=== PATIENT | male | born 2000 | race African-American/Black ===

== ENCOUNTER 2021-06-28 06:34 | Day surgery (SDC) | payer OTHER ==
[~2021-06-28] VITALS: Ht 177.8 cm; Wt 119.5 kg
[~2021-06-28 06:34] MED LIST: ACETAMINOPHEN 500 MG TABLET PO PRN; CETI10TA74 PO; DIPH25CA58 PO; HYDROmorphone 2 MG/ML VIAL IVP PRN; MORPHINE SULFATE 2 MG/ML INJ. IVP PRN; PROCHLORPERAZINE 10 MG/2 ML VIAL. IVP PRN; fentaNYL PF VIAL 100 MCG/2 ML VIAL IVP PRN
[2021-06-28] MEDS ORDERED: BUPIVACAINE-EPI 0.25%-1:200000 MPF 30 ML VIAL. ONE (06:50)
[2021-06-28 07:00] VITALS: BP 170/77
[2021-06-28] MEDS: IV RINGERS,LACTATED 1000ML 1,000 ML IV SCH ×2 (07:07→09:27)
[2021-06-28] MEDS ORDERED: fentaNYL PF VIAL 100 MCG/2 ML VIAL ONE (07:24)
[2021-06-28] MEDS ORDERED: DEXAMETHASONE SOD PHOS 4 MG/ML VIAL ONE (07:24)
[2021-06-28] MEDS ORDERED: ONDANSETRON PF 4 MG/2 ML VIAL. ONE (07:24)
[2021-06-28] MEDS ORDERED: PROPOFOL 10 MG/ML (20ML) VIAL. IV ONE ×2 (07:24→08:13)
[2021-06-28] MEDS ORDERED: MIDAZOLAM HCL/PF 2 MG/2 ML VIAL. ONE (07:24)
[2021-06-28] MEDS ORDERED: LIDOCAINE 2% PF 5 ML VIAL. ONE (07:24)
[2021-06-28] MEDS ORDERED: FAMOTIDINE 20 MG/2 ML VIAL ONE (07:56)
[2021-06-28] MEDS ORDERED: KETOROLAC 30 MG/ML VIAL. ONE (07:59)
[2021-06-28] MEDS ORDERED: SEVOFLURANE 31 TO 60 MINUTES. IH ONE (08:09)
--- NOTE | 2021-06-28 08:11 | PDOC4 ---
Operative Note Operative Note Date: June 282020 at 810 Preoperative diagnosis: Umbilical hernia Postoperative diagnosis: Same Procedure: Umbilical hernia repair Surgeon: Rodney Specimen: Hernia contents Dictation: Patient is 20-year-old male with complaints of a painful bulge at his umbilicus. Procedure of umbilical hernia repair was explained to the patient detail risk benefits were also discussed including bleeding infection alternatives this procedure also discussed with the patient who seemed to understand and gave a verbal written consent to have procedure performed. Patient was taken to the operating room placed in the supine position general anesthesia was initiated once patient was sleeping intubated his abdomen was prepped and draped usual sterile fashion using ChloraPrep. Area around the umbilicus was injected with quarter percent Marcaine with epinephrine incision was made just above the umbilicus with 15 blade scalpel is carried down through the subcutaneous tissue using electrocautery right hemostasis to the hernia sac and contents were encountered they were excised sharply with electrocautery and sent for pathology the hernia defect was then closed with a [id number] 0 Vicryl suture. The incision was then closed with 4-0 subcuticular Monocryl Mastisol Steri-Strips and island dressings were applied. Patient was awakened and extubated in the operating room taken to recovery in stable condition all sponge instrument needle counts listed as correct estimated blood loss less than 5 cc DELFINO LAGUNA MD Jun 28, 2021 08:11
[2021-06-28] MEDS ORDERED: OXYC-325 PO (08:13)
--- NOTE | 2021-06-28 08:14 | DISCH ---
DISCHARGE INSTRUCTIONS Condition on Discharge Condition on Discharge: Stable Activity After Discharge Activity Instructions for Disc: Avoid exertion Other activity instructions: No lifting more than 20 pounds for 2 weeks Diet after Discharge Diet after Discharge: Regular Wound Incision Care Other wound/incision instructi: Svitlana shower in 24 hours Contacting the after DC Call your doctor for: If your condition worsens Follow-Up Follow up with: Dr. Laguna in 2 weeks DELFINO LAGUNA MD Jun 28, 2021 08:14
[2021-06-28] MEDS ORDERED: oxyCODONE/APAP 5/325 1 TAB TABLET PO ONE (09:15)
[2021-06-28 10:10] VITALS: BP 150/64
--- NOTE | 2021-07-01 14:07 | PATHOLOGY ---
[facility] Accession Number: [id number] . 01 Material submitted: . umbilicus - HERNIA CONTENTS . 01 Clinical history: . HERNIA UMBILICAL OPEN UMBILICAL HERNIA REPAIR . 02 Diagnosis: Umbilical hernia contents: - Segment of benign adipose and fibrous tissue. (JPM:kim; 07/01/2021) S 07/01/2021 1149 Local . 02 Electronically signed: . Hamlet Puri MD, Pathologist NPI- [id number] . 01 Gross description: . The specimen is received in formalin, labeled "Daysi, Sean, hernia contents". It consists of a marcano-yellow, irregular fatty soft tissue segment measuring 3.2 x 0.2 x 1.5 cm. Sectioning reveals marcano-yellow lobulated cut surfaces. Import Clerk sections are submitted in A1. (MRF; 06/28/2021) MFE/MFE 07/01/2021 1148 Local . 02 Pathologist provided ICD-10: K42.9 . 02 CPT . 740084 Specimen Comment: A courtesy copy of this report has been sent to [phone] Specimen Comment: Report sent to DR. HICKMAN Performed at: 01 [facility] [address], [place] [id number] MD Jose Antonio Jama MD Phone: [phone] Performed at: 02 [facility] [address] [place], [place] [id number] MD Hamlet Puri MD Phone: [phone]
--- NOTE | 2021-07-16 15:02 | PDOC1 ---
History and Physical Date of Admission Date of Admission DATE: 06/28/21 TIME: 08:00 Identification/Chief Complaint Chief Complaint Painful umbilicus Source Source: Patient History of Present Illness History of Present Illness 20-year-old male with a painful bulge at his umbilicus consistent with umbilical hernia Past Medical History Cardiovascular: No pertinent hx Pulmonary: No pertinent hx GI: No pertinent hx Heme/Onc: No pertinent hx Hepatobiliary: No pertinent hx Psych: No pertinent hx Rheumatologic: No pertinent hx Infectious disease: No pertinent hx ENT: No pertinent hx Renal/: No pertinent hx Endocrine: No pertinent hx Dermatology: No pertinent hx Past Surgical History Past Surgical History: No pertinent history Family History Family History: No Significant Social History Smoke: No ALCOHOL: none Drugs: None Current Medications Current Medications Current Medications Fentanyl Citrate (Fentanyl 2ml Vial) 25 mcg PRN Q5MIN PRN IVP MILD PAIN 1-3; Start 06/28/21 at 06:00; Stop 06/28/21 at 10:58; Status DC Fentanyl Citrate (Fentanyl 2ml Vial) 50 mcg PRN Q5MIN PRN IVP MODERATE PAIN 4- 6; Start 06/28/21 at 06:00; Stop 06/28/21 at 10:58; Status DC Morphine Sulfate (Morphine Sulfate) 1 mg PRN Q10MIN PRN IVP SEVERE PAIN 7-10; Start 06/28/21 at 06:00; Stop 06/28/21 at 10:58; Status DC Ringer's Solution 1,000 ml @ 30 mls/hr Q24H IV Last administered on 06/28/21at 09:27; Start 06/28/21 at 06:00; Stop 06/28/21 at 10:58; Status DC Hydromorphone HCl (Dilaudid) 0.5 mg PRN Q10MIN PRN IVP SEVERE PAIN 7-10, 2nd CHOICE; Start 06/28/21 at 06:00; Stop 06/28/21 at 10:58; Status DC Prochlorperazine Edisylate (Compazine) 5 mg PACU PRN PRN IVP NAUSEA, MRX1; Start 06/28/21 at 06:00; Stop 06/28/21 at 10:58; Status DC Acetaminophen (Tylenol) 1,000 mg 1X PREOP PRN PO PRIOR TO PROCEDURE Last administered on 06/28/21at 07:08; Start 06/28/21 at 06:00; Stop 06/28/21 at 10:58; Status DC Cefazolin Sodium/ Dextrose 50 ml @ 100 mls/hr 1X PREOP PRN IV PRIOR TO PROCEDURE Last administered on 06/28/21at 07:46; Start 06/28/21 at 06:00; Stop 06/28/21 at 10:58; Status DC Bupivacaine HCl/ Epinephrine Bitart (Sensorcaine-Epi 0.25%-1:685284 Mpf) 30 ml STK-MED ONCE .ROUTE Last administered on 06/28/21at 08:01; Start 06/28/21 at 06:50; Stop 06/28/21 at 06:51; Status DC Propofol (Diprivan) 200 mg STK-MED ONCE IV ; Start 06/28/21 at 07:24; Stop 06/28/21 at 07:24; Status DC Lidocaine HCl (Lidocaine Pf 2% Vial) 5 ml STK-MED ONCE .ROUTE ; Start 06/28/21 at 07:24; Stop 06/28/21 at 07:24; Status DC Ondansetron HCl (Zofran) 4 mg STK-MED ONCE .ROUTE ; Start 06/28/21 at 07:24; Stop 06/28/21 at 07:24; Status DC Dexamethasone Sodium Phosphate (Decadron) 4 mg STK-MED ONCE .ROUTE ; Start 06/28/21 at 07:24; Stop 06/28/21 at 07:24; Status DC Fentanyl Citrate (Fentanyl 2ml Vial) 100 mcg STK-MED ONCE .ROUTE ; Start 06/28/21 at 07:24; Stop 06/28/21 at 07:24; Status DC Midazolam HCl (Versed) 2 mg STK-MED ONCE .ROUTE ; Start 06/28/21 at 07:24; Stop 06/28/21 at 07:24; Status DC Famotidine (Pepcid Vial) 20 mg STK-MED ONCE .ROUTE ; Start 06/28/21 at 07:56; Stop 06/28/21 at 07:57; Status DC Ketorolac Tromethamine (Toradol 30mg Vial) 30 mg STK-MED ONCE .ROUTE ; Start 06/28/21 at 07:59; Stop 06/28/21 at 07:59; Status DC Sevoflurane (Ultane) 30 ml STK-MED ONCE IH ; Start 06/28/21 at 08:09; Stop 06/28/21 at 08:09; Status DC Propofol (Diprivan) 200 mg STK-MED ONCE IV ; Start 06/28/21 at 08:13; Stop 06/28/21 at 08:14; Status DC Oxycodone/ Acetaminophen (Percocet 5/325) 1 tab 1X ONCE PO Last administered on 06/28/21at 09:13; Start 06/28/21 at 09:15; Stop 06/28/21 at 09:16; Status DC Active Scripts Active Percocet 5-325 mg Tablet (Oxycodone HCl/Acetaminophen) 1 Each Tablet 1 Tab PO Q6HRS PRN MDD 3 Tablet(s) 5 Days Reported Benadryl (Diphenhydramine Hcl) 25 Mg Capsule 2 Cap PO QHS 30 Days Zyrtec (Cetirizine Hcl) 10 Mg Tablet 1 Tab PO DAILY Allergies Allergies: Coded Allergies: No Known Drug Allergies (Unverified , 06/28/21) ROS Gastrointestinal: Yes Abdominal Pain Physical Exam General: Alert, Oriented X3, Cooperative, No acute distress HEENT: Atraumatic, EOMI Lungs: Clear to auscultation, Normal air movement Heart: RRR, no murmurs Abdomen: Normal bowel sounds, Soft, Other (Tender bulge at the umbilicus) Rectal Exam: not examined Extremities: No edema Skin: No significant lesion Neuro: Normal speech Psych/Mental Status: Mental status NL VTE Prophylaxis Ordered VTE Prophylaxis Devices: Yes VTE Pharmacological Prophylaxi: Contraindicated Assessment/Plan Assessment/Plan Umbilical hernia plan repair Justifications for Admission Other Justification DELFINO LAGUNA MD Jul 16, 2021 15:02
== END 2021-06-28 10:35 | disposition home or self-care (01) ==
LOC: SURG 06:34
PROVIDERS: ATTEND Surgery
DX: K42.9 Umbilical hernia without obstruction or gangrene (principal); Z79.899 Other long term (current) drug therapy; Z98.890 Other specified postprocedural states
CPT/HCPCS: 49585; A4357; A4364; A4930; A6258; J0690; J1100; J1885; J2250; J2405; J2704; J3010; J3490; 88302; A4452